=== PATIENT | male | born 1965 | race Two or more races ===

== ENCOUNTER 2024-05-08 11:33 | Emergency (ER) | payer OTHER ==
[~2024-05-08] VITALS: Ht 170.2 cm; Wt 77.1 kg
[2024-05-08] MEDS: LIDOCAINE 5% (PATCH) 1 EA PATCH TP STA (11:54)
[2024-05-08] MEDS ORDERED: KETOROLAC TROMETHAMINE 15 MG/ML VIAL ONE (12:00)
[2024-05-08] MEDS ORDERED: HYDROCODONE/APAP 5/325MG TABLET ONE (12:01)
[2024-05-08] MEDS ORDERED: CYCLOBENZAPRINE 10 MG TABLET ONE (12:01)
[2024-05-08] MEDS ORDERED: LIDOCAINE 5% (PATCH) 1 EA PATCH TP ONE (12:01)
[2024-05-08] MEDS: HYDROCODONE/APAP 5/325MG TABLET PO ONE (12:15)
[2024-05-08] MEDS: KETOROLAC TROMETHAMINE 15 MG/ML VIAL IM ONE (12:15)
[2024-05-08] MEDS: CYCLOBENZAPRINE 10 MG TABLET PO ONE (12:15)
[2024-05-08] MEDS ORDERED: IBUP-1955 PO (13:03)
[2024-05-08] MEDS ORDERED: LIDO30AD10 TP (13:03)
[2024-05-08] MEDS ORDERED: METH4TAB17 PO (13:03)
[2024-05-08] MEDS ORDERED: CYCL5TAB PO (13:03)
[2024-05-08] MEDS ORDERED: HYDR-4303 PO (13:03)
[2024-05-08 13:32] VITALS: BP 103/63; TEMP 208.8; O2SAT 97
== END 2024-05-08 13:32 | disposition home or self-care (01) ==
LOC: ER 11:38
DX: M54.6 Pain in thoracic spine (principal); M54.59 Other low back pain
CPT/HCPCS: 99284; 96372; J1885